=== PATIENT | female | born 1960 | race Caucasian/White ===

== ENCOUNTER 2016-08-21 05:28 | Day surgery (SDC) | payer OTHER, SELFPAY ==
[~2016-08-21 05:28] MED LIST: ACIPHEX20 MG; ADVIL200 MG; ADVIL200 MG PO; ALLEGRA-D1 TAB.SR .; ATARAX25 MG PO; ATIVAN1 MG PO; AVELOX400 MG; CARAFATE1 G PO; CHERATUSSIN A3840 ML; FLAGYL500 MG PO; LEVAQUIN500 MG PO; LEVAQUIN750 MG PO; MOTRIN400 MG PO; NO MEDS; NORCO 5/325 TAB1 TAB PO; PEPCID20 MG PO; PREDNISONE20 MG PO; PRILOSEC20 MG PO; PROMETHAZINE-C118 ML PO; PROTONIX40 M2 PO
== END 2016-08-21 09:25 ==
LOC: SHSA 05:28 → ENDOS 07:50
PROC: 0DB28ZX Excision of Middle Esophagus, Via Natural or Artificial Opening Endoscopic, Diagnostic (ICD-10-PCS; principal; 2016-08-21)
DX: K21.9 Gastro-esophageal reflux disease without esophagitis (principal); R07.89 Other chest pain; F32.9 Major depressive disorder, single episode, unspecified; F17.200 Nicotine dependence, unspecified, uncomplicated; Z88.8 Allergy status to other drugs, medicaments and biological substances; Z98.890 Other specified postprocedural states; Z90.49 Acquired absence of other specified parts of digestive tract; Z90.710 Acquired absence of both cervix and uterus; Z79.899 Other long term (current) drug therapy